=== PATIENT | male | born 1955 | race African-American/Black ===

== ENCOUNTER 2016-10-10 19:04 | Emergency (ER) | payer OTHER ==
[~2016-10-10] VITALS: Ht 175.3 cm; Wt 79.4 kg
[2016-10-10 19:25] VITALS: BP 126/77
[2016-10-10] MEDS ORDERED: Lidocaine 1% 10mg/ml/EPI 0.01mg/ml 50ml INJ ONE (19:30)
[2016-10-10] MEDS ORDERED: Tetanus/Diptheria/Pertussis Vaccine 0.5ml Syr IM ONE (19:30)
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
[2016-10-10] MEDS ORDERED: Norco 5mg/325mg tab ORAL ONE (20:30)
[2016-10-10] MEDS ORDERED: ceFAZolin sod 1 GM in D5W 55 ML IVPB ONE (20:30)
[2016-10-10] MEDS ORDERED: Surgicel 4in x 8in TOPIC ONE (20:44)
[2016-10-10] MEDS ORDERED: CEPHALEXIN500 M1 ORAL (20:48)
[2016-10-10] MEDS ORDERED: NORCO 5-325 TA1 EACH ORAL (21:19)
[2016-10-10 21:45] VITALS: BP 120/61
--- NOTE | 2016-10-11 08:42 | Diagnostic Imaging Report ---
Indication: PAIN Technique: XRAY CHEST 1 V Comparison: None. Findings: The cardiomediastinal silhouette is normal. The lungs are clear. There is no evidence of pleural fluid. Hardware is present in the cervical spine from previous fusion. There is a mild spurring of the thoracic spine. Impression: Mild degenerative change of the thoracic spine. Evidence of previous fusion of the cervical spine. Otherwise negative chest.
== END 2016-10-10 21:45 | disposition home or self-care (01) ==
LOC: EMR 19:40
DX: S41.011A Laceration without foreign body of right shoulder, initial encounter (principal); S01.112A Laceration without foreign body of left eyelid and periocular area, initial encounter; S21.211A Laceration without foreign body of right back wall of thorax without penetration into thoracic cavity, initial encounter; M79.89 Other specified soft tissue disorders; F17.210 Nicotine dependence, cigarettes, uncomplicated; Z88.6 Allergy status to analgesic agent; X99.9XXA Assault by unspecified sharp object, initial encounter; Y93.9 Activity, unspecified; Y92.9 Unspecified place or not applicable; J44.9 Chronic obstructive pulmonary disease, unspecified; Z23 Encounter for immunization
CPT/HCPCS: 12001; 71010; 73060; 90471; 90715; 96372; 96374; 99284; J0690; Z7502